=== PATIENT | female | born 1980 | race Hispanic/Latino ===

== ENCOUNTER 2021-07-06 05:27 | Emergency (ER) | payer OTHER, SELFPAY ==
[2021-07-06] MEDS ORDERED: ONDANSETRON 4 MG/2 ML VIAL ONE (06:10)
[2021-07-06] MEDS ORDERED: FAMOTIDINE 20 MG/2 ML VIAL IV ONE (06:10)
[2021-07-06] MEDS ORDERED: MORPHINE 4 MG/ML SYR ONE (06:10)
[2021-07-06 06:11] LABS: Absolute Lymphocytes (CBC) 2.3 K/uL (0.7-4.9); Hematocrit 33.1 % (36.0-45.0); MPV 8.5 fL (7.6-11.3); RBC Red Blood Cell Count 4.18 M/uL (3.86-4.86)
[2021-07-06 06:29] LABS: ALT/SGPT 21 U/L (12-78); AST/SGOT 19 U/L (15-37); Albumin 3.5 g/dL (3.4-5.0); Alkaline Phosphatase 96 U/L (45-117); BUN Blood Urea Nitrogen 16 mg/dL (7-18); Bicarbonate 26 mmol/L (21-32); Bilirubin Direct < 0.1 mg/dL (0-0.2); Bilirubin Total 0.2 mg/dL (0.2-1.0); Glucose Level 126 mg/dL (74-106); Lipase 140 U/L (73-393); Potassium 3.8 mmol/L (3.5-5.1); Protein, Total 8.1 g/dL (6.4-8.2); Sodium Level 137 mmol/L (136-145)
[2021-07-06 06:56] LABS: Urine Blood Trace-intact (Negative); Urine Glucose Negative (Negative); Urine Protein Negative (Negative); Urine Specific Gravity 1.025 (1.005-1.030)
[2021-07-06] MEDS ORDERED: NA CHLORIDE 0.9% 50 ML ONE (07:51)
[2021-07-06] MEDS ORDERED: CEFTRIAXONE 1000 MG/VIAL ONE (07:51)
--- NOTE | 2021-07-06 07:55 | RAD REPORT ---
EXAM DESCRIPTION: CT - Abdomen Pelvis W Contrast - 07/06/2021 7:35 am CLINICAL HISTORY: Abdominal pain COMPARISON: none. TECHNIQUE: Computed axial tomography of the abdomen pelvis was obtained. 100 cc Isovue-300 was admin istered intravenously. Oral contrast was not requested which limits evaluation of bowel. All CT scans are performed using dose optimization technique as appropriate and may include automated exposure control or mA/KV adjustment according to patient size. FINDINGS: Borderline gallbladder distention. The gallbladder wall is not thickened. The liver, spleen, pancreas, adrenal and kidneys appear unremarkable. There is no evidence of diverticulitis. Normal appendix. 2 centimeter irregularly-shaped left ovarian cyst with small amount of free fluid. Small umbilical hernia IMPRESSION: Borderline gallbladder distention. The gallbladder wall is not thickened. 2 centimeter irregularly-shaped left ovarian cyst with small amount of free fluid. The ovarian cyst h as likely recently ruptured.
--- NOTE | 2021-07-06 07:56 | RAD REPORT ---
EXAM DESCRIPTION: US - Abdomen Exam Limited - 07/06/2021 6:41 am CLINICAL HISTORY: Abdominal pain. COMPARISON: None. FINDINGS: Several gallstones. Borderline gallbladder distention. A gallstone is not seen. The biliary tree is normal caliber. IMPRESSION: Cholelithiasis without evidence of cholecystitis. Borderline gallbladder distention
[2021-07-06 08:02] LABS: Urine Specific Gravity/Preg 1.025 (1.005-1.030)
--- NOTE | 2021-07-06 09:23 | ER ---
Nurse's Notes [facility] Name: Valerie Thomson Age: 41 yrs Sex: Female : 1980 Arrival Date: 07/06/2021 Time: 05:31 Bed 14 Private MD: Diagnosis: Other cholelithiasis without obstruction Presentation: 07/06 05:43 Chief complaint: Patient states: extreme ABD pain that wraps around to the upper back. bb symptoms started 3-4 hours ago. vomited twice before arrival. no medications taken at home. Coronavirus screen: Vaccine status: Patient reports receiving the 2nd dose of the covid vaccine. moderna x2 Client denies travel out of the [place] in the last 14 days. At this time, the client does not indicate any symptoms associated with coronavirus-19. Ebola Screen: No symptoms or risks identified at this time. Initial Sepsis Screen: Does the patient meet any 2 criteria? No. Patient's initial sepsis screen is negative. Does the patient have a suspected source of infection? No. Patient's initial sepsis screen is negative. Risk Assessment: Do you want to hurt yourself or someone else? Patient reports no desire to harm self or others. Onset of symptoms was July 06, 2021 at 02:00. 05:43 Method Of Arrival: Ambulatory bb 05:43 Acuity: IFEOMA 2 bb Triage Assessment: 05:47 General: Appears distressed, uncomfortable, Behavior is cooperative, anxious, crying. bb Pain: Complains of pain in epigastric area Pain radiates to back. EENT: No signs and/or symptoms were reported regarding the EENT system. Neuro: Level of Consciousness is awake, alert, obeys commands, Oriented to person, place, time, situation. Cardiovascular: Capillary refill < 3 seconds. Respiratory: Airway is patent Trachea midline Respiratory effort is even, unlabored, Respiratory pattern is regular, symmetrical. GI: Abdomen is round non-distended. :. : No signs and/or symptoms were reported regarding the genitourinary system. 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 - Social history:: Smoking status: Patient denies any tobacco usage or history of. Screenin:53 Abuse screen: Denies threats or abuse. Nutritional screening: No deficits noted. sv1 Tuberculosis screening: No symptoms or risk factors identified. Never had TB. Fall Risk No fall in past 12 months (0 pts). No secondary diagnosis (0 pts). IV access (20 points). Ambulatory Aid- None/Bed Rest/Nurse Assist (0 pts). Gait- Normal/Bed Rest/Wheelchair (0 pts) Mental Status- Oriented to own ability (0 pts). Assessment: 05:59 GI: Bowel sounds present X 4 quads. sv1 06:27 Reassessment: Medicated IV for pain with morphine 4 mg. The patient felt a strong warm sv1 sensation. She stated she did not like the medication. She remains alert. The symptom faded and the patient felt more relaxed. . 07:33 Reassessment: Pt transported to CT via wheelchair. In NAD. AAOx4. GCS 15. ic1 08:23 Reassessment: Patient appears in no apparent distress at this time. No changes from ic1 previously documented assessment. Pt in room with at bedside. Returned from CT. VSS. Denies pain at this time. Airway maintained, breathing unlabored, chest rise/fall symmetrical. Patient denies pain at this time. Vital Signs: 05:43 BP 139 / 97; Pulse 94; Resp 18 S; Temp 97.5(O); Pulse Ox 100% on R/A; Pain 10/10; bb 05:57 BP 139 / 97; Pulse 84; Resp 18; Temp 98.4; Pulse Ox 100% ; Weight 77.11 kg; Height 5 sv1 ft. 6 in. (167.64 cm); Pain 10/10; 06:31 BP 128 / 73; Pulse 91; Resp 16; Pulse Ox 100% 0 lpm ; sv1 07:34 BP 131 / 88; Pulse 81; Resp 18; Pulse Ox 99% on R/A; ic1 09:26 BP 111 / 73; Pulse 83; Resp 18 S; Pulse Ox 100% on R/A; ic1 05:57 Body Mass Index 27.44 (77.11 kg, 167.64 cm) sv1 ED Course: 05:31 Patient arrived in ED. bp1 05:38 Jame Goyal MD is Attending Physician. kdr 05:47 Triage completed. bb 05:47 Arm band placed on. bb 05:52 Jose Langston, RN is Primary Nurse. sv1 05:57 Patient has correct armband on for positive identification. Bed in low position. Call sv1 light in reach. Side rails up X2. Adult w/ patient. 05:57 No provider procedures requiring assistance completed. sv1 06:01 Basic Metabolic Panel Sent. sv1 06:01 CBC with Diff Sent. sv1 06:01 Hepatic Function Sent. sv1 06:01 Lipase Sent. sv1 06:41 US Abdomen Limited In Process Unspecified. EDMS 07:11 Attending Physician role handed off by Jame Goyal MD ma2 07:11 Jennifer Abrams MD is Attending Physician. ma2 07:35 CT Abd/Pelvis - IV Contrast Only In Process Unspecified. EDMS 08:23 Pulse ox on. NIBP on. Door closed. Noise minimized. Lights dimmed. ic1 09:21 Primary Nurse role handed off by Jose Langston, FABRICIO eb 09:22 Chris Bunch MD is Referral Physician. ma2 09:35 IV discontinued, intact, bleeding controlled, No redness/swelling at site. Pressure ic1 dressing applied. Administered Medications: 06:26 Drug: morphine 4 mg Route: IVP; Site: left antecubital; sv1 06:26 Drug: Zofran (Ondansetron) 4 mg Route: IVP; Site: left antecubital; sv1 06:26 Drug: Pepcid (famotidine) 20 mg Route: IVP; Site: left antecubital; sv1 07:58 Drug: Rocephin (cefTRIAXone) 1 grams Route: IV; Rate: bolus; Site: left antecubital; ic1 Outcome: 09:23 Discharge ordered by . ma2 09:35 Discharged to home ambulatory, with significant other. ic1 09:35 Condition: stable 09:35 Discharge instructions given to patient, family, Instructed on discharge instructions, follow up and referral plans. Demonstrated understanding of instructions, follow-up care, medications, Prescriptions given X 2. 09:36 Patient left the ED. ic1 Signatures: Dispatcher [employer] EDMS Jame Goyal MD MD kdr Kary Gillespie RN RN bb Alzleidy, MD PENNIE Rodriguez ma2 Bertha Merida Brittany bp1 Villicano, Steven, RN RN sv1 Ella Mckinley RN RN ic1
--- NOTE | 2021-07-06 09:23 | EDPHYS ---
Physician Documentation [facility] Name: Valerie Thomson Age: 41 yrs Sex: Female : 1980 Arrival Date: 07/06/2021 Time: 05:31 Bed 14 Private MD: ED Physician Jennifer Abrams HPI: 07/06 05:56 This 41 yrs old Female presents to ER via Ambulatory with complaints of kdr Abdominal Pain, Vomiting. 05:56 The patient presents to the emergency department with nausea, that is mild, vomiting, kdr that is intermittent, abdominal pain, of the posterior aspect of right lateral abdomen, anterior aspect of right lateral abdomen and right upper quadrant. Onset: The symptoms/episode began/occurred suddenly, 4 hour(s) ago, She has had intermittent abdominal pain of the same quality character for about a month. She was seen at [facility] for the same pain a few weeks ago but do not diagnosis was recalled or given. Possible causes: unknown. The symptoms are aggravated by nothing. Associated signs and symptoms: Pertinent positives: abdominal pain, nausea, vomiting. The patient has not experienced similar symptoms in the past. 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 - Social history:: Smoking status: Patient denies any tobacco usage or history of. ROS: 06:52 Constitutional: Negative for fever, chills, and weight loss, Eyes: Negative for injury, kdr pain, redness, and discharge, ENT: Negative for injury, pain, and discharge, Neck: Negative for injury, pain, and swelling, Cardiovascular: Negative for chest pain, palpitations, and edema, Respiratory: Negative for shortness of breath, cough, wheezing, and pleuritic chest pain, Back: Negative for injury and pain, : Negative for injury, bleeding, discharge, and swelling, MS/Extremity: Negative for injury and deformity, Skin: Negative for injury, rash, and discoloration, Neuro: Negative for headache, weakness, numbness, tingling, and seizure activity. Psych: Negative for depression, anxiety, suicide ideation, homicidal ideation, and hallucinations, Allergy/Immunology: Negative for hives, rash, and allergies, Endocrine: Negative for neck swelling, polydipsia, polyuria, polyphagia, and marked weight changes, Hematologic/Lymphatic: Negative for swollen nodes, abnormal bleeding, and unusual bruising. 06:52 Abdomen/GI: Positive for abdominal pain, nausea and vomiting, Negative for abdominal cramps, black/tarry stool, rectal pain, rectal bleeding, bowel incontinence. Exam: 06:52 Constitutional: This is a well developed, well nourished patient who is awake, alert, kdr and in moderate distress. Head/Face: Normocephalic, atraumatic. Eyes: Pupils equal round and reactive to light, extra-ocular motions intact. Lids and lashes normal. Conjunctiva and sclera are non-icteric and not injected. Cornea within normal limits. Periorbital areas with no swelling, redness, or edema. Neck: Trachea midline, no thyromegaly or masses palpated, and no cervical lymphadenopathy. Supple, full range of motion without nuchal rigidity, or vertebral point tenderness. No Meningismus. Chest/axilla: Normal chest wall appearance and motion. Nontender with no deformity. No lesions are appreciated. Cardiovascular: Regular rate and rhythm with a normal S1 and S2. No gallops, murmurs, or rubs. Normal PMI, no JVD. No pulse deficits. Respiratory: Lungs have equal breath sounds bilaterally, clear to auscultation and percussion. No rales, rhonchi or wheezes noted. No increased work of breathing, no retractions or nasal flaring. Back: No spinal tenderness. No costovertebral tenderness. Full range of motion. Skin: Warm, dry with normal turgor. Normal color with no rashes, no lesions, and no evidence of cellulitis. MS/ Extremity: Pulses equal, no cyanosis. Neurovascular intact. Full, normal range of motion. Neuro: Awake and alert, GCS 15, oriented to person, place, time, and situation. Cranial nerves II-XII grossly intact. Motor strength 5/5 in all extremities. Sensory grossly intact. Cerebellar exam normal. Normal gait. Psych: Awake, alert, with orientation to person, place and time. Behavior, mood, and affect are within normal limits. Vital Signs: 05:43 BP 139 / 97; Pulse 94; Resp 18 S; Temp 97.5(O); Pulse Ox 100% on R/A; Pain 10/10; bb 05:57 BP 139 / 97; Pulse 84; Resp 18; Temp 98.4; Pulse Ox 100% ; Weight 77.11 kg; Height 5 sv1 ft. 6 in. (167.64 cm); Pain 10/10; 06:31 BP 128 / 73; Pulse 91; Resp 16; Pulse Ox 100% 0 lpm ; sv1 07:34 BP 131 / 88; Pulse 81; Resp 18; Pulse Ox 99% on R/A; ic1 09:26 BP 111 / 73; Pulse 83; Resp 18 S; Pulse Ox 100% on R/A; ic1 05:57 Body Mass Index 27.44 (77.11 kg, 167.64 cm) sv1 MDM: 09:21 Differential diagnosis: Nonspecific abd pain, gastritis, cholecystitis, viral ma2 gastroenteritis, gastroenteritis. Data reviewed: vital signs, nurses notes. Counseling: I had a detailed discussion with the patient and/or guardian regarding: the historical points, exam findings, and any diagnostic results supporting the discharge/admit diagnosis, the presence of at least one elevated blood pressure reading (>120/80) during this emergency department visit, the need for outpatient follow up. Counseling: I had a detailed discussion with the patient and/or guardian regarding: lab results, radiology results. Response to treatment: the patient's symptoms have markedly improved after treatment. ED course: 41-year-old female, with no health issues here with right upper quadrant abdominal pain abdomen is unremarkable pain resolved with pain medication in ER, lab work and vital signs are within normal limits. Ultrasound shows cholelithiasis without acute cholecystitis. I explained those findings to the patient, I recommend follow-up with general surgeon will refer to Dr. Bunch for elective lap cholecystectomy. I gave return precautions to patient specifically to return to ER for fever, worsening abdominal pain vomiting, for further evaluation.. 09:23 Patient medically screened. ma2 07/06 05:39 Order name: Basic Metabolic Panel; Complete Time: 06:52 kdr 07/06 05:39 Order name: CBC with Diff; Complete Time: 06:52 kdr 07/06 05:39 Order name: Hepatic Function; Complete Time: 06:52 kdr 07/06 05:39 Order name: Lipase; Complete Time: 06:52 kdr 07/06 06:56 Order name: Urine Dipstick-Ancillary; Complete Time: 07:11 EDMS 07/06 07:12 Order name: Urine --Ancillary (enter results); Complete Time: 08:08 eb 07/06 05:39 Order name: IV Saline Lock; Complete Time: 06:01 kdr 07/06 05:39 Order name: Labs collected and sent; Complete Time: 06:01 kdr 07/06 05:52 Order name: US Abdomen Limited; Complete Time: 08:08 kdr 07/06 05:52 Order name: CT Abd/Pelvis - IV Contrast Only; Complete Time: 08:08 kdr 07/06 07:05 Order name: Urine Test (obtain specimen) sv1 Administered Medications: 06:26 Drug: morphine 4 mg Route: IVP; Site: left antecubital; sv1 06:26 Drug: Zofran (Ondansetron) 4 mg Route: IVP; Site: left antecubital; sv1 06:26 Drug: Pepcid (famotidine) 20 mg Route: IVP; Site: left antecubital; sv1 07:58 Drug: Rocephin (cefTRIAXone) 1 grams Route: IV; Rate: bolus; Site: left antecubital; ic1 Disposition Summary: 07/06/21 09:23 Discharge Ordered Location: Home ma2 Condition: Stable ma2 Diagnosis - Other cholelithiasis without obstruction ma2 Followup: ma2 - With: Chris Bunch MD - When: Tomorrow - Reason: If symptoms return, Continuance of care Discharge Instructions: - Discharge Summary Sheet ma2 - Cholelithiasis ma2 Forms: - Medication Reconciliation Form ma2 - Thank You Letter ma2 - Antibiotic Education ma2 - Prescription Opioid Use ma2 Prescriptions: - Zofran 4 mg Oral Tablet - take 1 tablet by ORAL route every 12 hours As needed; 20 tablet; Refills: 0, ma2 Product Selection Permitted - Diclofenac Sodium 75 mg Oral Tablet Sustained Release - take 1 tablet by ORAL route 2 times per day; 30 tablet; Refills: 0, Product ma2 Selection Permitted Signatures: Dispatcher [employer] Jame Caro MD MD kdr Ballard, Brenda, RN RN Jennifer Thompson MD MD ma2 Jose Langston, RN RN sv1 Ella Mckinley RN RN ic1
[2021-07-06 09:48] VITALS: TEMP 98.4
[2021-07-06 09:55] VITALS: BP 111/73; O2SAT 100
== END 2021-07-06 09:36 | disposition home or self-care (01) ==
LOC: ER 05:27
DX: K80.80 Other cholelithiasis without obstruction (principal)
CPT/HCPCS: 36415; 74177; 76705; 80048; 80076; 81003; 81025; 83690; 85025; 96374; 96375; 99284; J2405; Q9967